=== PATIENT | female | born 1980 ===

== ENCOUNTER 2016-08-06 06:10 | Day surgery (SDC) | payer MEDICAID ==
[2016-08-02 14:17] VITALS: BMI 43.0
[2016-08-06] MEDS ORDERED: Benzocaine/Butamben/Tetracai 14-2-2% TOP Spray TOP ONE (07:59)
[2016-08-06] MEDS ORDERED: Propofol 10 mg/ml Inj (20 ML) ONE ×2 (08:00→08:15)
[2016-08-06] MEDS ORDERED: Sodium Chloride 0.9% 1,000 ML IV SCH (08:45)
[2016-08-06 09:29] VITALS: BP 133/83; PULSE 73; RESP 17; TEMP 98.1; O2SAT 99
== END 2016-08-06 10:18 | disposition home or self-care (01) ==
LOC: ENDO 06:10
PROVIDERS: ATTEND Internal Medicine
DX: K31.7 Polyp of stomach and duodenum (principal); K29.50 Unspecified chronic gastritis without bleeding; E11.9 Type 2 diabetes mellitus without complications; E78.00 Pure hypercholesterolemia, unspecified; R16.0 Hepatomegaly, not elsewhere classified; R16.1 Splenomegaly, not elsewhere classified; R10.13 Epigastric pain
CPT/HCPCS: 43239; 82948; 84703; 88305; 88342; J2001; J2704; J3010; J7040 ×2